=== PATIENT | male | born 1970 | race Caucasian/White ===

== ENCOUNTER 2016-11-26 15:12 | Emergency (ER) | payer BC ==
[2016-11-26 16:25] VITALS: BP 143/84
[2016-11-26] MEDS ORDERED: Ketorolac 60 MG/2 ML SDV IM ONE (17:07)
[2016-11-26] MEDS ORDERED: Cyclobenzaprine 10 MG Tab PO ONE (17:07)
--- NOTE | 2016-11-26 17:12 | EDM.PDOC ---
ED HPI GENERAL MEDICAL PROBLEM - General Chief Complaint: Lower Extremity Injury/Pain Stated Complaint: HURT LEG WED Time Seen by Provider: 11/26/16 17:04 Source of Information: Reports: Patient, Old Records, RN Notes Reviewed History Limitations: Reports: No Limitations - History of Present Illness INITIAL COMMENTS - FREE TEXT/NARRATIVE: 45-year-old gentleman presents emergency department day complaint of right thigh pain, he was evaluated in the clinic 2 days prior he injured himself doing exercise was given Toradol naproxen and Kenalog he states the pain has continued without any significant relief he also does have a history of a tick bite and was started on doxycycline Right Middle Hip Pain Score (Numeric/FACES): 10 - Related Data Allergies Allergy/AdvReac Type Severity Reaction Status Date / Time No Known Allergies Allergy Verified 11/26/16 16:12 Home Meds: Home Meds Cyclobenzaprine [Flexeril] 10 mg PO TID PRN 11/26/16 [History] Naproxen 500 mg PO BID 11/26/16 [History] Past Medical History HEENT History: Reports: Impaired Vision Cardiovascular History: Reports: Hypertension Social & Family History - Tobacco Use Smoking Status *Q: Never Smoker - Caffeine Use Caffeine Use: Reports: Coffee - Recreational Drug Use Recreational Drug Use: No Review of Systems - Review of Systems Review Of Systems: See Below Constitutional: Reports: No Symptoms Musculoskeletal: Reports: Leg Pain, Muscle Pain ED EXAM, GENERAL - Physical Exam Exam: See Below Free Text/Narrative:: Examination of the right thigh I don't appreciate any erythema or edema noted there is no specific tenderness to palpation he is tender over the greater trochanter he does have full range of motion with flexion and extension without pain his able to stand and place weight on his right leg but he doesn't gingerly Exam Limited By: No Limitations General Appearance: Alert, WD/WN, No Apparent Distress Course - Vital Signs Last Recorded V/S: Last Vital Signs Temp 98.4 F 11/26/16 16:24 Pulse 74 11/26/16 16:24 Resp 12 11/26/16 16:24 BP 143/84 H 11/26/16 16:24 Pulse Ox 98 11/26/16 16:24 - Orders/Labs/Meds Meds: Medications Discontinued Medications Generic Name Dose Route Start Last Admin Trade Name Freq PRN Reason Stop Dose Admin Cyclobenzaprine HCl 10 mg 11/26/16 17:07 Flexeril PO 11/26/16 17:08 ONETIME ONE Ketorolac Tromethamine 60 mg 11/26/16 17:07 11/26/16 17:19 Toradol IM 11/26/16 17:08 60 mg ONETIME ONE Administration Departure - Departure Time of Disposition: 17:48 Disposition: Home, Self-Care 01 Condition: Good Clinical Impression: Muscle strain of thigh Qualifiers: Encounter type: initial encounter Laterality: right Qualified Code(s): S76.911A - Strain of unspecified muscles, fascia and tendons at thigh level, right thigh, initial encounter - Discharge Information Forms: ED Department Discharge Additional Instructions: Use naproxen for baseline pain control, use hydrocodone for breakthrough pain, use soma as needed for muscle relaxant please keep your follow-up appointment with physical therapy follow-up with your primary care provider in the next 7- 10 days if no improvement call return to the emergency department worsening of symptoms - Assessment/Plan Plan: Assessment Acuity = acute Site and laterality = muscle strain right thigh Etiology = secondary to exercise Manifestations = pain Location of injury = Home Lab values = none Plan He had good relief with Toradol injection plan discharge home with soma to be used as needed in combination with hydrocodone total #10 tablets follow up with primary care as needed he does have appointment with physical therapy Patient was in agreement with the plan all questions were answered, they were instructed to return to the emergency department or call for worsening symptoms. This note was dictated using [employer] voice recognition software please call with any questions.
[2016-11-26] MEDS ORDERED: HYDROmorphone 1 MG/ML Syringe IM ONE (17:56)
== END 2016-11-26 19:07 | disposition home or self-care (01) ==
LOC: JP.ED 15:12
DX: S76.911A Strain of unspecified muscles, fascia and tendons at thigh level, right thigh, initial encounter (principal); I10 Essential (primary) hypertension; X50.1XXA Overexertion from prolonged static or awkward postures, initial encounter
CPT/HCPCS: 96372; 99283; A9270; J1170; J1885